=== PATIENT | female | born 1985 | race African-American/Black ===

== ENCOUNTER 2024-01-01 17:16 | Emergency (ER) | payer MEDICAID, SELFPAY ==
--- NOTE | ~2024-01-01 | XR_ITS ---
EXAMINATION: XR CHEST 2 VIEWS CLINICAL INFORMATION: Chest pain. COMPARISON: None. TECHNIQUE: Frontal and lateral views of the chest were obtained. FINDINGS: The heart, great vessels, pulmonary vasculature and mediastinum are normal. The lungs show no focal infiltrate, effusion or pneumothorax. There is no acute osseous abnormality. XR/XR chest 2V IMPRESSION: No active cardiopulmonary disease.
--- NOTE | 2024-01-01 17:18 | ECG_ITS ---
Test Reason : CHEST PAIN Blood Pressure : / mmHG Vent. Rate : 096 BPM Atrial Rate : 096 BPM P-R Int : 154 ms QRS Dur : 076 ms QT Int : 352 ms P-R-T Axes : 062 -02 041 degrees QTc Int : 444 ms Normal sinus rhythm Possible Left atrial enlargement Borderline ECG No previous ECGs available Referred By: Yessenia Kuhn Electronically Signed By:LUPE HERNANDES
[2024-01-01 18:14] VITALS: BP 143/92; PULSE 69; RESP 16; TEMP 37.3; O2SAT 100; BMI 30.7
--- NOTE | 2024-01-01 18:21 | ED_ITS ---
HPI - General Adult General Chief complaint: Arrhythmia/Palpitations Stated complaint: heart racing, back pain Time Seen by Provider: 01/01/24 23:44 Source: patient Mode of arrival: ambulatory Limitations: no limitations History of Present Illness ED Provider: Raphael WRIGHT PA-C HPI narrative: 38-year-old female with no past medical history presents to the ED for 3 months of palpitations described as heart racing she gets angry and stressed. Patient denies any shortness of breath, slurred speech, facial droop, paralysis of extremities, leg swelling, calf pain, coughing up blood, pleurisy, recent long travel, or recent surgery. Patient denies being on any control pills. Patient has secondary complaint is itchy rash on her trunk and breast area and also under her breast. Patient denies any neck pain. Patient denies any chest pain. Patient presently asymptomatic Related Data Previous Rx's ?Medication ?Instructions ?Recorded clotrimazole 1 % topical cream 1 appl topical BID 2 weeks #45 01/02/24 grams Allergies Allergy/AdvReac Type Severity Reaction Status Date / Time No Known Allergies Allergy Verified 01/01/24 18:22 Review of Systems 2 Review of Systems: palpitations and rash Yes all other systems are reviewed and are negative PMFSH Social History Social History Smoked in Last 30 Days: No Use of substances other than those prescribed or required for medical reasons: No Advance Directives: No Advance Directives Information Provided: No Do you have a plan to hurt others: No Plan Patient : No Physical Exam ED Vital Signs: Vital Signs - 24 hr 01/01/24 18:14 01/01/24 23:49 Temperature 99.2 F 98.5 F Pulse Rate 69 58 Respiratory Rate 16 20 Blood Pressure 143/92 H 139/99 H Pulse Oximetry 100 100 Oxygen Delivery Method Room Air Room Air BMI result Body Mass Index 30.7 Const General: cooperative, healthy appearing, comfortable, no acute distress, well developed, alert, awake and Physically active Orientation/consciousness: oriented to person, oriented to place, oriented to time and patient oriented x3 HENMT Head: Yes normal to inspection, Yes No palpable skull fracture present, Yes normocephalic, Yes atraumatic and No abrasion Eyes General: appearance normal, both eyes and all related structures Neck Neck: Yes normal visual inspection, Yes full ROM, Yes no lymphadenopathy, Yes no meningeal signs, Yes trachea midline, Yes supple, No anterior neck swelling and No tender Chest Chest palpation & inspection: normal inspection of the chest and normal palpation of entire chest wall Chest/axillae images: 2 1. Positive for fungal rash 2. Positive for fungal rash 3. Positive for fungal rash Resp Effort & Inspection: normal respiratory effort and able to speak in complete sentences Auscultation: clear to auscultation bilaterally Cardio Jugular venous distension: no JVD Heart sounds: S1 normal heart sound present and S2 normal heart sound present GI Inspection: Yes normal to inspection Palpation (GI): Soft to palpation, not firm, nontender, no guarding and not rigid General: No CVA tenderness and Yes no CVA tenderness Back/Spine/Pelvis Back: no CVA tenderness, No CVA tenderness and No back tenderness Skin General skin exam: no rashes or lesions noted, elasticity normal and turgor normal Neuro General: oriented to person, oriented to place, oriented to time, patient oriented x3, gait normal, tone normal, moves all extremities, Normal light touch and pain sensation, no meningeal signs, no focal motor deficits, CN's II-XI intact bilaterally and normal sensation to monofilament Extrem Other: Bilateral lower extremity negative for swelling, pain edema, or calf tenderness. General: Yes normal to inspection and Yes full ROM Psych Appearance: grossly normal, well kempt and not disheveled Course Course Course Narrative: This is a rapid medical exam performed by Gabbi Khun NP: Additional HPI, ROS, PE not included below will be deferred to primary provider. Patient is a 38-year-old [place] Creole speaking female presenting to the ED with complaint of chest pain, palpitations, neck pain and pruritic rash. Chest pain intermittent for quite some time but worsening recently. Rash since or saturday. Scaly pustules noted to trunk, midline. Denies fevers. Plan: EKG, labs, cxr Medications Administered Discontinued Medications Generic Name Dose Route Start Last Admin Trade Name Freq PRN Reason Stop Dose Admin Ibuprofen 800 mg 01/02/24 01:57 01/02/24 02:04 Ibuprofen 800 Mg Tablet PO 01/02/24 01:58 800 mg ONCE ONE Administration Medical Decision Making Medical Decision Making MDM Narrative: 38 yold female presents to the ED palpitations when she is angry for the past 3 months. Patient also has itchy rash it seemed fungal. Not suspecting myocardial infarction, heart failure, pulmonary embolus, pneumonia, myocarditis, or pneumothorax. PERC score is 0. Heart Score 0. Rash indicates tinea fungal rash. Patient explained worrisome signs and informed to return to the ED immediately. Differential Diagnosis Differential Diagnoses: The differential diagnosis associated with the presentation includes (Palpitations, anxiety induced palpitations, dermatitis, fungal rash,) Admission/Observation Consideration of admission/observation: Escalation of care including admission/observation considered Lab Data MDM Lab Attestation statement: I reviewed the patient's lab results. 01/01/24 18:35 01/01/24 18:35 Labs: Lab Results 01/01/24 01/02/24 Range/Units 18:35 00:31 WBC 7.7 (4.8-10.8) X10*3/uL RBC 4.67 (4.20-5.50) X10*6/uL Hgb 12.8 (12.0-16.0) g/dl Hct 40.2 (37.0-47.0) % MCV 86.1 (80.0-98.0) fL MCH 27.4 (27.0-33.0) pg MCHC 31.8 (31.0-35.0) g/dl RDW 13.1 (11.0-16.0) % Plt Count 196 (160-400) X10*3/uL MPV 10.9 (9.4-12.3) fL Immature Gran % (Auto) 0.1 (0.0-0.4) % Neut % (Auto) 65.9 (45-73) % Lymph % (Auto) 21.4 (20-40) % George % (Auto) 10.1 (2-11) % Eos % (Auto) 2.2 (0-4) % Baso % (Auto) 0.3 (0-2) % Lymph # (Auto) 1.7 (1.2-4.9) X10*3/uL George # (Auto) 0.8 (0.1-1.2) X10*3/uL Eos # (Auto) 0.2 (0.0-0.4) X10*3/uL Baso # (Auto) 0.0 (0.0-0.2) X10*3/uL Abs Immat Gran (auto) 0.01 (0.00-0.03) X10*3/uL Absolute Neuts (auto) 5.1 (2.0-8.3) x10*3/uL Absolute Nucleated RBC 0.000 (0.0-0.012) X10*3/uL Nucleated RBC % (auto) 0.0 (0.0-0.2) /100WBC PT 13.9 H 14.2 H (11.1-13.3) SEC INR 1.1 1.2 H (0.9-1.1) APTT 28.8 (26.0-36.8) SEC Sodium 145 (135-145) mmol/L Potassium 3.7 (3.3-5.1) mmol/L Chloride 110 H (96-108) mmol/L Carbon Dioxide 29 (22-29) mmol/L Anion Gap 10 L (12-20) BUN 12 (9-16) mg/dL Creatinine 0.91 (0.5-1.4) mg/dL Estim Creat Clear Calc 73.0 Estimated GFR > 60 Random Glucose 95 (60-115) mg/dL Calcium 10.0 (8.4-10.2) mg/dL Magnesium 2.2 (1.6-2.6) mg/dL Total Bilirubin 0.4 (0.0-1.0) mg/dL AST 18 (5-31) U/L ALT 18 (0-31) U/L Alkaline Phosphatase 62 (39-117) U/L Troponin I High Sens < 2.7 < 2.7 (<3.5-17.0) ng/L Total Protein 7.3 (6.5-8.0) g/dL Albumin 4.4 (3.5-5.0) g/dL TSH 0.77 (0.32-4.0) uIU/mL Beta HCG, Quant < 2 mIU/mL Independent Interpretation I performed an independent interpretation of an: EKG (Normal sinus rhythm. Negative) and Plain X-Ray Radiology Impression Discussion of test interpretation with radiology: I have reviewed the radiologist's reading. Independent Historian Clinical information obtained from an independent historian. History obtained from or confirmed by: Other (Patient) External Record Review External record reviewed: Other (Prior visit) Discharge Plan Discharge Clinical Impression: Palpitations, Tinea corporis Patient Disposition: Home, Self-Care Instructions: Heart Palpitations (ED), Tinea Corporis (ED) Additional Instructions: Recommend follow-up with primary care provider. Return to the ED immediately for any chest pain, shortness of breath, syncopal episode, palpitation, leg swelling, calf pain, coughing up blood, fever, chills, chest pain inspiration, worsening rash, lip swelling, tongue swelling, sensation of throat closing, or any other concerning symptoms. Prescriptions: New clotrimazole 1 % cream 1 appl topical BID 14 Days Qty: 45 0RF Referrals: [facility] [Provider Group] (Palpitations. Tinea corpora) Stand Alone Forms: Work/School Release Interventions: ED Discharge Assessment Last Done: 01/02/24 02:09 Discharge Date/Time: 01/02/24 02:09 Print Language: Greenlandic
[2024-01-01 18:38] LABS: MANUAL DIFF FLAG NO
[2024-01-01 18:40] LABS: Basophils Percent Auto 0.3 % (0-2); Eosinophils Absolute Auto 0.2 X10*3/uL (0.0-0.4); Eosinophils Percent Auto 2.2 % (0-4); Hematocrit 40.2 % (37.0-47.0); Hemoglobin 12.8 g/dl (12.0-16.0); Imm Gran Abs Auto 0.01 X10*3/uL (0.00-0.03); Imm Gran Pct Auto 0.1 % (0.0-0.4); Lymphocytes Absolute Auto 1.7 X10*3/uL (1.2-4.9); Lymphocytes Percent Auto 21.4 % (20-40); Mean Corpuscular HGB Conc 31.8 g/dl (31.0-35.0); Mean Corpuscular Hemoglobin 27.4 pg (27.0-33.0); Mean Corpuscular Volume 86.1 fL (80.0-98.0); Mean Platelet Volume 10.9 fL (9.4-12.3); Monocytes Absolute Auto 0.8 X10*3/uL (0.1-1.2); Monocytes Percent Auto 10.1 % (2-11); Neutrophils Absolute Auto 5.1 x10*3/uL (2.0-8.3); Neutrophils Percent Auto 65.9 % (45-73); Platelet Count 196 X10*3/uL (160-400); Red Blood Count 4.67 X10*6/uL (4.20-5.50); Red Cell Distribution Width 13.1 % (11.0-16.0); White Blood Count 7.7 X10*3/uL (4.8-10.8)
[2024-01-01 18:47] LABS: INTERNATIONAL NORM RATIO 1.1 (0.9-1.1); Prothrombin Time 13.9 SEC (11.1-13.3)
[2024-01-01 19:02] LABS: Alanine Aminotransferase 18 U/L (0-31); Albumin Level 4.4 g/dL (3.5-5.0); Alkaline Phosphatase 62 U/L (39-117); Anion Gap 10 (12-20); Aspartate Amino Transferase 18 U/L (5-31); Bilirubin Total 0.4 mg/dL (0.0-1.0); Blood Urea Nitrogen 12 mg/dL (9-16); Carbon Dioxide 29 mmol/L (22-29); Chloride 110 mmol/L (96-108); Estimated Glomerular Filt Rate > 60; Glucose Random 95 mg/dL (60-115); Magnesium 2.2 mg/dL (1.6-2.6); Potassium 3.7 mmol/L (3.3-5.1); Sodium 145 mmol/L (135-145); Total Protein 7.3 g/dL (6.5-8.0)
[2024-01-01 19:03] LABS: Troponin-I High Sensitivity < 2.7 ng/L (<3.5-17.0)
[2024-01-01 19:18] LABS: HCG Quantitative < 2 mIU/mL; TSH reflex Free T4 0.77 uIU/mL (0.32-4.0)
[2024-01-01 23:49] VITALS: BP 139/99; PULSE 58; RESP 20; TEMP 36.9; O2SAT 100
[2024-01-02 00:47] LABS: INTERNATIONAL NORM RATIO 1.2 (0.9-1.1); Prothrombin Time 14.2 SEC (11.1-13.3)
[2024-01-02 00:50] LABS: Partial Thromboplastin Time 28.8 SEC (26.0-36.8)
[2024-01-02 00:55] LABS: Troponin-I High Sensitivity < 2.7 ng/L (<3.5-17.0)
[2024-01-02] MEDS: Ibuprofen 800 MG TABLET PO (02:04)
[2024-01-02 02:06] VITALS: BP 117/81; PULSE 71; RESP 17; TEMP 37.1; O2SAT 97
[2024-01-02 02:09] VITALS: BP 117/81; PULSE 71; RESP 17; TEMP 37.1; O2SAT 97
== END 2024-01-02 02:09 | disposition home or self-care (01) ==
PROVIDERS: Physician Assistant; Registered Nurse Emergency; Emergency Provider Student in an Organized Health Care Education/Training Program
DX: B35.4 Tinea corporis (principal); R07.9 Chest pain, unspecified; R00.2 Palpitations; R21 Rash and other nonspecific skin eruption
CPT/HCPCS: 36415; 71046; 80053; 83735; 84443; 84484; 84702; 85025; 85610; 85730; 93005; 99283; 99285

== ENCOUNTER → 2024-01-01 17:18 | Outpatient (BNV) | payer MEDICAID, SELFPAY | PROVIDERS: Emergency Provider Student in an Organized Health Care Education/Training Program; Visit Provider Internal Medicine | DX: R07.9 Chest pain, unspecified (principal); R94.31 Abnormal electrocardiogram [ECG] [EKG] | CPT/HCPCS: 93010 ==